=== PATIENT | female | born 1945 | race Caucasian/White ===

== ENCOUNTER 2019-02-14 17:34 | Emergency (ER) | payer MEDICARE, OTHER ==
[~2019-02-14] VITALS: Ht 160 cm; Wt 86.2 kg
[2019-02-14] MEDS ORDERED: METF-442 PO (17:48)
[2019-02-14] MEDS ORDERED: DEXAMETHASONE SOD PHOSPHATE 4 MG INJ IV ONE (18:00)
[2019-02-14] MEDS ORDERED: IV NORMAL SALINE 1000 ML BAG IV ONE (18:00)
--- NOTE | 2019-02-14 18:10 | NUR ---
PATIENT SEEN BY ER PHYSICIAN. PATIENT C/O FLU LIKE SYMPTOMS
[2019-02-14] MEDS ORDERED: DEXAMETHASONE SOD PHOSPHATE 10 MG INJ ONE (18:17)
[2019-02-14 18:28] LABS: BASOPHILS # (AUTO) 0.1 K/uL (0.0-8.0); BASOPHILS % (AUTO) 0.8 % (0.0-2.0); EOSINOPHILS # (AUTO) 0.1 K/uL (0.0-0.7); EOSINOPHILS % (AUTO) 0.9 % (0.0-7.0); HEMATOCRIT 39.1 % (31.2-41.9); HEMOGLOBIN 13.1 g/dL (10.9-14.3); LYMPHOCYTES # (AUTO) 0.9 K/uL (20.0-40.0); LYMPHOCYTES % (AUTO) 11.7 % (20.5-51.5); MEAN CORPUSCULAR HEMOGLOBIN 29.3 uug (24.7-32.8); MEAN CORPUSCULAR HGB CONC 34 g/dL (32.3-35.6); MEAN CORPUSCULAR VOLUME 87.5 fL (75.5-95.3); MONOCYTES # (AUTO) 0.8 K/uL (2.0-10.0); NEUTROPHILS # (AUTO) 5.5 K/uL (1.8-8.9); NEUTROPHILS % (AUTO) 75.6 % (38.5-71.5); PLATELET COUNT (AUTO) 169 K/uL (179-408); RED BLOOD CELL COUNT(AUTO) 4.47 MIL/uL (3.63-4.92); WHITE BLOOD COUNT (AUTO) 7.3 K/uL (3.8-11.8)
[2019-02-14 18:39] LABS: CARBON DIOXIDE 24 mmol/L (21-32); CHLORIDE 99 mmol/L (98-107); CREATININE 1.1 mg/dL (0.6-1.3); GLUCOSE 213 mg/dL (74-106); POTASSIUM 4.3 mmol/L (3.5-5.1); UREA NITROGEN, BLOOD 21 mg/dL (7-18)
[2019-02-14 19:02] LABS: ALANINE AMINOTRANSFERASE 66 U/L (14-59); ALKALINE PHOSPHATASE 174 U/L (50-136); ASPARTATE AMINOTRANSFERASE 44 U/L (15-37); BILIRUBIN,DIRECT 0.2 mg/dL (0.0-0.2); BILIRUBIN,TOTAL 0.9 mg/dL (0.2-1.0); TOTAL PROTEIN, SERUM 7.2 g/dL (6.4-8.2)
--- NOTE | 2019-02-14 19:09 | NUR ---
REPORTED TO ALYX VIRGEN
--- NOTE | 2019-02-14 19:24 | NUR ---
Inserted henderson catheter, pt tolerated procedure well, acquired urine sample, sent to lab.
[2019-02-14 19:27] LABS: *BILIRUBIN,URIN NEGATIVE (NEGATIVE); *CLARITY,URINE SLIGHTLY CLOUDY (CLEAR); *COLOR,URINE YELLOW (YELLOW); *KETONES,URINE NEGATIVE (NEGATIVE); *UROBILINOGEN,URINE 0.2 E.U./dl (NORMAL); LEUKOCYTE ESTERASE ,URINE TRACE (NEGATIVE); NITRITE, URINE NEGATIVE (NEGATIVE); PH,URINE 5.5 (5.0-8.0); UGLUCOSE NEGATIVE (NEGATIVE)
[2019-02-14 19:34] LABS: *BLOOD, URINE TRACE (NEGATIVE)
[2019-02-14 19:35] LABS: BACTERIA,URINE MANY /HPF (NONE SEEN); MUCUS,URINE MANY /LPF (0-FEW); RBC,URINE 0-3 /HPF (0-3); SQUAMOUS EPITHELIAL CELL,UR FEW /HPF (NONE SEEN)
[2019-02-14] MEDS ORDERED: SWABABLE VALVE TRANSFER SET EA MC ONE (19:36)
[2019-02-14] MEDS ORDERED: IV NORMAL SALINE 250 ML IV ONE (19:36)
[2019-02-14] MEDS ORDERED: IOHEXOL 300MG/ML 100 ML INFUS..BTL ONE (19:36)
[2019-02-14] MEDS ORDERED: NORMAL SALINE FLUSH 10 ML DISP.SYRIN ONE (19:36)
--- NOTE | 2019-02-14 19:49 | NUR ---
Pt out of ER for CT.
--- NOTE | 2019-02-14 20:23 | NUR ---
Pt back to ER from CT.
[2019-02-14] MEDS ORDERED: NITROFURANTOIN/NITROFURAN MAC 100 MG CAPSULE PO ONE (20:45)
[2019-02-14] MEDS ORDERED: CEFTRIAXONE 1 G in IV DEXTROSE 5% 50 ML IV ONE (20:45)
[2019-02-14] MEDS ORDERED: CEFTRIAXONE 1 G VIAL ONE (20:54)
[2019-02-14] MEDS ORDERED: NITROFURANTOIN/NITROFURAN MAC 100 MG CAPSULE ONE (20:55)
[2019-02-14] MEDS ORDERED: ONDANSETRON 4 MG/2 ML VIAL ONE (21:59)
[2019-02-14] MEDS ORDERED: IBUPROFEN 600 MG TABLET PO ONE (22:00)
[2019-02-14] MEDS ORDERED: IBUPROFEN 600 MG TABLET ONE (22:00)
[2019-02-14] MEDS ORDERED: ONDANSETRON IV *ER 4 MG/2 ML VIAL IV ONE (22:00)
--- NOTE | 2019-02-14 22:20 | NUR ---
Patient discharged to home in stable conditon. Written and verbal after care instructions given. Patient verbalizes understanding of instructions. Pt ambulated out of ER with steady gait, no acute signs of distress, VSS, all belongings taken, IV site discontinued, provided with diagnostic results and a CD of CT scans, to be driven home by son via private vehicle.
[2019-02-14 22:21] VITALS: BP 159/90
== END 2019-02-14 22:21 | disposition home or self-care (01) ==
LOC: ER 17:34
DX: N12 Tubulo-interstitial nephritis, not specified as acute or chronic (principal); R51 Headache; E11.9 Type 2 diabetes mellitus without complications; R94.5 Abnormal results of liver function studies; Z88.0 Allergy status to penicillin; Z79.899 Other long term (current) drug therapy
CPT/HCPCS: 36415; 70470; 71045; 71250; 74177; 80048; 80076; 81001; 82962; 83605; 83880; 84484; 85025; 85730; 87040 ×2; 87077; 87086; 87186; 87400; 93005; 96365; 96375; 99284; J0696; J1100; J2405; J7060; Q9967; 70030-TC; A4663; C1758; J3490; J7030; J7050

== ENCOUNTER 2021-12-04 18:36 | Inpatient (IN) | payer MEDICARE, OTHER ==
[~2021-12-04] VITALS: Ht 160 cm; Wt 86.2 kg
[~2021-12-04 18:36] MED LIST: METF-442 PO
--- NOTE | 2021-12-04 18:36 | NUR ---
EKG was done and a copy was handed to Dr Fernandez.
[2021-12-04] MEDS ORDERED: ROSU5TAB PO (18:43)
[2021-12-04] MEDS ORDERED: ASPI81TA31 PO (18:43)
--- NOTE | 2021-12-04 19:01 | NUR ---
Patient is resting comfortably on gurney, pending MD evaluation. SBAR to dishwashing machine operator CRISPIN Bai.
--- NOTE | 2021-12-04 19:14 | NUR ---
Dr Fernandez into eval patient.
[2021-12-04] MEDS ORDERED: HYDROMORPHONE 1 MG/1 ML DISP.SYRIN IV ONE (19:30)
[2021-12-04] MEDS ORDERED: IV NORMAL SALINE 1000 ML BAG IV ONE (19:30)
[2021-12-04 19:46] LABS: HEMATOCRIT 37.6 % (31.2-41.9); MEAN CORPUSCULAR HEMOGLOBIN 29.6 uug (24.7-32.8); PLATELET COUNT (AUTO) 146 K/uL (179-408)
[2021-12-04] MEDS ORDERED: HYDROMORPHONE 1 MG/1 ML DISP.SYRIN ONE (19:47)
[2021-12-04 20:06] LABS: CREATININE 1.1 mg/dL (0.6-1.3)
[2021-12-04 20:07] LABS: *BILIRUBIN,URIN NEGATIVE (NEGATIVE); *BLOOD, URINE NEGATIVE (NEGATIVE); *CLARITY,URINE HAZY (CLEAR); *COLOR,URINE YELLOW (YELLOW); *KETONES,URINE TRACE (NEGATIVE); *UROBILINOGEN,URINE 0.2 E.U./dl (NORMAL); LEUKOCYTE ESTERASE ,URINE TRACE (NEGATIVE); NITRITE, URINE POSITIVE (NEGATIVE); UGLUCOSE NEGATIVE (NEGATIVE)
[2021-12-04 20:13] LABS: BILIRUBIN,DIRECT 0.5 mg/dL (0.0-0.2); BILIRUBIN,TOTAL 0.9 mg/dL (0.2-1.0); TOTAL PROTEIN, SERUM 6.8 g/dL (6.4-8.2)
[2021-12-04 20:18] LABS: BACTERIA,URINE MANY /HPF (NONE SEEN); RBC,URINE 0-3 /HPF (0-3); SQUAMOUS EPITHELIAL CELL,UR MANY /HPF (NONE SEEN)
--- NOTE | 2021-12-04 20:18 | NUR ---
Patient out of unit for ct scan via gurny.
[2021-12-04] MEDS ORDERED: IV NORMAL SALINE 250 ML IV ONE (20:34)
[2021-12-04] MEDS ORDERED: IOHEXOL 300MG/ML 100 ML INFUS..BTL ONE (20:34)
[2021-12-04] MEDS ORDERED: SWABABLE VALVE TRANSFER SET EA MC ONE (20:34)
--- NOTE | 2021-12-04 20:48 | NUR ---
Patient back from ct scan with no distress noted.
[2021-12-04] MEDS ORDERED: PROCHLORPERAZINE EDISYLATE 10 MG/2 ML VIAL IV ONE (21:00)
[2021-12-04] MEDS ORDERED: PROCHLORPERAZINE EDISYLATE 10 MG/2 ML VIAL ONE (21:05)
--- NOTE | 2021-12-04 21:48 | NUR ---
Paged Epic panel nutrition partner, waiting for Dr Brown to call back.
--- NOTE | 2021-12-04 22:10 | NUR ---
Dr Puentes spoke to Dr Brown who accept patient to Med-Surg.
--- NOTE | 2021-12-04 22:40 | NUR ---
Transfered to 3rd floor via gurny with no distress noted.
[2021-12-04] MEDS ORDERED: ACETAMINOPHEN 325 MG TABLET PO PRN (22:45)
[2021-12-04] MEDS ORDERED: ONDANSETRON 4 MG/2 ML VIAL IV PRN (22:45)
[2021-12-04] MEDS ORDERED: MORPHINE SULFATE 2 MG/1 ML DISP.SYRIN IV PRN (22:45)
[2021-12-04] MEDS ORDERED: METRONIDAZOLE 500 MG/NS 100ML 500 MG in PREMIXED 1 EACH IV SCH (23:17)
--- NOTE | 2021-12-04 23:40 | NUR ---
Received patient via gurney from ER. Admitted to room 302, tele, with admitting diagnosis of Acute Pancreatitis, under care of Dr. Hernandez. Established nurse-patient rapport. Patient is AAOX4, Greek, speaks and understands Andorran. Pt is ambulatory, transferred to the bed by herself. Oriented patient to room, bed and call light button. Patient is on room air. Attached to tele monitor, showing sinus rhythm with HR of 77bpm. IV access on R AC, 20 gauge, started on IVF, running D5 1/2 NS at 90cc/hr. Per MD order, pt to be kept on NPO. Initial assessment done. No skin issues noted. Safety measures initiated. Will continue to monitor.
[2021-12-04 23:55] VITALS: BP 128/61
[2021-12-05] MEDS: IV D5 1/2 NS 1000 ML 1,000 ML IV PRN (00:16)
[2021-12-05] MEDS ORDERED: METRONIDAZOLE 500 MG/NS 100ML 100 ML IV ONE (01:49)
[2021-12-05] MEDS ORDERED: levoFLOXacin 500 MG/D5W 100 ML ONE (01:49)
[2021-12-05] MEDS: levoFLOXacin 500 MG/D5W 500 MG in PREMIXED 1 EACH IV SCH (01:51)
[2021-12-05 04:00] VITALS: BP 102/45
--- NOTE | 2021-12-05 05:12 | NUR ---
Patient slept intermittently through the night with no complaints. On telemonitor, showing SR, with HR of 82bpm. On room air. IVF infusing D5 1/2 NS running at 90cc/hr. Compliant with medication regimen. All needs attended to and met. Safety precautions maintained. Will endorse to day shift.
[2021-12-05 07:07] LABS: HEMATOCRIT 33.3 % (31.2-41.9); MEAN CORPUSCULAR HEMOGLOBIN 30.3 uug (24.7-32.8); MEAN CORPUSCULAR VOLUME 88.1 fL (75.5-95.3); PLATELET COUNT (AUTO) 138 K/uL (179-408)
[2021-12-05 07:39] LABS: BILIRUBIN,TOTAL 1.7 mg/dL (0.2-1.0); CREATININE 0.9 mg/dL (0.6-1.3); PHOSPHOROUS 3.5 mg/dL (2.5-4.9); POTASSIUM 4.1 mmol/L (3.5-5.1); TOTAL PROTEIN, SERUM 5.8 g/dL (6.4-8.2)
--- NOTE | 2021-12-05 08:00 | NUR ---
Pt denies any c/o pain. Discussed plan of care with patient re: NPO status and pain management. PT agreeable with plan of care. IV site intact no s/s of infiltration.
[2021-12-05] MEDS: ASPIRIN 81 MG TAB.CHEW PO SCH (08:55)
[2021-12-05] MEDS: PANTOPRAZOLE SODIUM 40 MG VIAL IV SCH (08:55)
[2021-12-05] MEDS: ENOXAPARIN SODIUM 40 MG/0.4 ML DISP.SYRIN SQ SCH (08:56)
[2021-12-05] MEDS: METRONIDAZOLE 500 MG/NS 100ML 500 MG in PREMIXED 1 EACH IV SCH ×2 (11:24→19:45)
[2021-12-05 11:58] VITALS: BP 134/43
[2021-12-05 12:00] VITALS: BP 111/62
[2021-12-05 16:00] VITALS: BP 125/61
--- NOTE | 2021-12-05 19:15 | NUR ---
Received patient lying in bed. On telemonitor, showing SR, with HR of 82bpm. On room air. IVF infusing D5 1/2 NS running at 90cc/hr. Patient kept on NPO. Reminded patient of scheduled MRCP tomorrow morning, pt acknowledged. All needs attended to and met. Safety precautions maintained, call light button within reach. Will continue to monitor
[2021-12-05 20:03] VITALS: BP 137/68
[2021-12-06 00:06] VITALS: BP 141/61
[2021-12-06] MEDS: IV D5 1/2 NS 1000 ML 1,000 ML IV PRN (01:34)
[2021-12-06] MEDS: levoFLOXacin 500 MG/D5W 500 MG in PREMIXED 1 EACH IV SCH (01:34)
[2021-12-06] MEDS: METRONIDAZOLE 500 MG/NS 100ML 500 MG in PREMIXED 1 EACH IV SCH ×3 (02:51→18:21)
[2021-12-06 04:06] VITALS: BP 125/49
[2021-12-06 06:28] LABS: HEMATOCRIT 32.7 % (31.2-41.9); MEAN CORPUSCULAR HEMOGLOBIN 29.9 uug (24.7-32.8); MEAN CORPUSCULAR VOLUME 88.4 fL (75.5-95.3); PLATELET COUNT (AUTO) 125 K/uL (179-408)
--- NOTE | 2021-12-06 06:38 | NUR ---
Patient slept through the night with no acute distress noted.PT is kept on NPO. On tele monitor, showing sinus rhythm. On room air. IV access on R AC infusing D5 1/2 NS at 90 cc/hr. Compliant with medication regimen. Safety precautions maintained. Will endorse to day shift.
[2021-12-06 07:05] LABS: BILIRUBIN,TOTAL 0.6 mg/dL (0.2-1.0); CREATININE 0.9 mg/dL (0.6-1.3); PHOSPHOROUS 3.1 mg/dL (2.5-4.9); POTASSIUM 3.6 mmol/L (3.5-5.1); TOTAL PROTEIN, SERUM 5.9 g/dL (6.4-8.2)
--- NOTE | 2021-12-06 07:30 | NUR ---
Awake, alert, oriented x 4. Room air. NPO reinstructed. IVF infusing. Discussed about MRCP procedure, will follow up.
[2021-12-06] MEDS: PANTOPRAZOLE SODIUM 40 MG VIAL IV SCH (09:36)
[2021-12-06] MEDS: ENOXAPARIN SODIUM 40 MG/0.4 ML DISP.SYRIN SQ SCH (09:45)
--- NOTE | 2021-12-06 12:41 | NUR ---
To [facility]
--- NOTE | 2021-12-06 14:15 | NUR ---
Back from [facility], MRCP done
--- NOTE | 2021-12-06 15:30 | NUR ---
MRCP results in, relayed to Dr. Brown. with orders for full liquid diet. Called dietary to send tray.
--- NOTE | 2021-12-06 18:04 | NUR ---
Tolerating full liquid diet. Denies pain, nor nausea/vomiting. Seen by Dr. Brown, discussed plan of care.
[2021-12-06] MEDS: ASPIRIN 81 MG TAB.CHEW PO SCH (18:21)
[2021-12-06 21:05] VITALS: BP 142/77
[2021-12-07] MEDS: levoFLOXacin 500 MG/D5W 500 MG in PREMIXED 1 EACH IV SCH (01:34)
[2021-12-07] MEDS: METRONIDAZOLE 500 MG/NS 100ML 500 MG in PREMIXED 1 EACH IV SCH (02:43)
[2021-12-07 04:23] VITALS: BP 115/69
[2021-12-07 08:06] LABS: BILIRUBIN,TOTAL 0.4 mg/dL (0.2-1.0); CREATININE 0.9 mg/dL (0.6-1.3); POTASSIUM 3.6 mmol/L (3.5-5.1); TOTAL PROTEIN, SERUM 5.8 g/dL (6.4-8.2)
[2021-12-07] MEDS: PANTOPRAZOLE SODIUM 40 MG VIAL IV SCH (08:12)
[2021-12-07] MEDS: ASPIRIN 81 MG TAB.CHEW PO SCH (08:12)
[2021-12-07] MEDS: ENOXAPARIN SODIUM 40 MG/0.4 ML DISP.SYRIN SQ SCH (08:13)
[2021-12-07 11:46] VITALS: BP 126/66
[2021-12-07] MEDS ORDERED: METRONIDAZOLE 500 MG TABLET PO SCH (14:00)
[2021-12-07 15:34] VITALS: BP 123/57
--- NOTE | 2021-12-07 17:07 | NUR ---
Patient discharged from unit at 1707. Discharge packet and education given. IV site removed. ID bracelet removed. Patient picked up by private car with family for home.
== END 2021-12-07 17:07 | disposition home or self-care (01) | DRG 689 ==
LOC: ER 18:40 → MEDSURG3 22:53 → TELE3 23:54 → MEDSURG3 12-06 08:42
PROVIDERS: ADMIT Internal Medicine; ATTEND Student in an Organized Health Care Education/Training Program
DX: N39.0 Urinary tract infection, site not specified (principal); K85.90 Acute pancreatitis without necrosis or infection, unspecified; E44.0 Moderate protein-calorie malnutrition; E11.65 Type 2 diabetes mellitus with hyperglycemia; E66.9 Obesity, unspecified; Z68.33 Body mass index [BMI] 33.0-33.9, adult; E86.0 Dehydration; E78.5 Hyperlipidemia, unspecified; E88.09 Other disorders of plasma-protein metabolism, not elsewhere classified; Z20.822 Contact with and (suspected) exposure to COVID-19; Z79.82 Long term (current) use of aspirin; Z88.0 Allergy status to penicillin; K44.9 Diaphragmatic hernia without obstruction or gangrene; Z90.49 Acquired absence of other specified parts of digestive tract; Z95.3 Presence of xenogenic heart valve; K57.90 Diverticulosis of intestine, part unspecified, without perforation or abscess without bleeding; R91.8 Other nonspecific abnormal finding of lung field; Z79.84 Long term (current) use of oral hypoglycemic drugs; B96.20 Unspecified Escherichia coli [E. coli] as the cause of diseases classified elsewhere
CPT/HCPCS: 36415; 70030-TC; 71045; 74181; 82378; 83605; 83690; 83735; 84100; 85025; 85730; 86301; 87077; 87086; 93005; 93307; A4663; C9113; G0378; J0780; J1170; J1650; J1956; J3490; J7030; J7050; Q9967